=== PATIENT | female | born 1975 | race Hispanic/Latino ===

== ENCOUNTER 2022-07-10 08:08 | Observation (INO) | payer SELFPAY ==
[2022-07-10 09:03] LABS: #Eosinphils 0.1 10x3/uL (0.0-0.5); #Monocytes 0.4 10x3/uL (0.0-1.1); %Basophils 0.3 % (0.0-2.0); %Eosinophils 1.7 % (0.0-6.0); %Lymphocytes 29.5 % (18.0-47.0); %Monocytes 6.2 % (0.0-10.0); %Neutrophils 62.1 % (40.0-75.0); Hemoglobin 12.1 g/dL (12.0-15.5); Mean Corpuscular HGB CONC 32.5 g/dL (32.0-36.0); Mean Corpuscular Hemoglobin 26.5 pg (27.0-33.0); Mean Corpuscular Volume 81.6 fl (81.6-98.3); Mean Platelet Volume 9.2 fl (7.4-10.4); Platelet Count 395 10x3/uL (150-450); RBC Distribution Width 15.4 % (11.5-14.5); Red Blood Cell (RBC) Count 4.56 10x6/uL (3.90-5.03); White Blood Cell (WBC) Count 6.4 10x3/uL (3.5-10.5)
[2022-07-10 09:21] LABS: ALT (SGPT) 30 U/L (8-55); AST (SGOT) 23 U/L (5-34); Albumin 3.9 g/dL (3.5-5.0); Alkaline Phosphatase 78 U/L (40-110); Anion Gap 12 mmol/L (10-20); BUN (Urea Nitrogen) 14 mg/dL (7.0-18.7); Bilirubin, Total 1.1 mg/dL (0.2-1.2); Calc. Creatinine Clearance 0 mL/min (70-130); Calcium 8.6 mg/dL (7.8-10.44); Carbon Dioxide 24 mmol/L (22-29); Chloride 106 mmol/L (98-107); Estimated GFR 110; Globulin 2.8 g/dL (2.4-3.5); Glucose 94 mg/dL (70-105); Lipase 14 U/L (8-78); Potassium 4.1 mmol/L (3.5-5.1); Protein, Total 6.7 g/dL (6.0-8.3); Sodium 138 mmol/L (136-145)
[2022-07-10] MEDS ORDERED: Ondansetron PF 4 MG/2 ML Vial ONE ×2 (10:05→15:11)
[2022-07-10] MEDS ORDERED: Morphine 4 MG/ML VIAL ONE (10:05)
[2022-07-10] MEDS ORDERED: Famotidine/PF 20 mg/2ml Vial ONE (10:20)
[2022-07-10 10:29] LABS: Bilirubin Neg (Negative); Blood, Urine Negative (Negative); Clarity Slightly Cloudy (Clear); Glucose, Urine (Dipstick) Normal (Negative); Ketone, Urine Negative (Negative); Leukocyte 25 (Negative); Nitrite Negative (Negative); Protein, Urine (Dipstick) Negative (Neg-Trace); Urobilinogen Normal mg/dL (Less than 2); pH, Urine 6.5 (5.0-9.0)
[2022-07-10 10:31] LABS: Pregnancy Test - Urine (BHCG) Negative (Negative); Pregu Control Background? CLEAR/WHITE (CLR/WHITE); Pregu Control Bar Appear? YES (CONTROL BAR)
[2022-07-10 10:40] LABS: Transitional Epithelial 0-3 HPF (None Seen)
[2022-07-10 10:41] LABS: RBC/HPF 0-3 HPF (0-3); WBC/HPF 0-3 HPF (0-3)
[2022-07-10 10:43] LABS: Bacteria/HPF 1+ HPF (None Seen)
[2022-07-10] MEDS ORDERED: Iopamidol 300 61% 100 ML VIAL FS ONE (11:46)
[2022-07-10] MEDS ORDERED: Bupivacaine/Epinephrine 0.25% 30 ML VIAL ONE (14:41)
[2022-07-10] MEDS ORDERED: Iopamidol 15 ML ONE (14:54)
[2022-07-10] MEDS ORDERED: Ketorolac Tromethamine 30 MG/ML VIAL ONE (15:11)
[2022-07-10] MEDS ORDERED: Glycopyrrolate 0.2 MG/ML 5 ML SYRINGE ONE (15:11)
[2022-07-10] MEDS ORDERED: Lidocaine 1% PF 5 ML VIAL ONE (15:11)
[2022-07-10] MEDS ORDERED: PHENYLEPHRINE-NS 100 MCG/ML 10 ML SYRINGE ONE (15:11)
[2022-07-10] MEDS ORDERED: PROPOFOL 20 ML ONE (15:11)
[2022-07-10] MEDS ORDERED: Rocuronium Bromide 10 MG/ML (10ML VIAL) ONE (15:11)
[2022-07-10] MEDS ORDERED: Dexamethasone 4 mg/ml Vial ONE (15:11)
[2022-07-10] MEDS ORDERED: Midazolam HCl 2 mg/2 ml Vial ONE (15:12)
[2022-07-10] MEDS ORDERED: Fentanyl 100 MCG/2 ML VIAL ONE ×3 (15:12→18:23)
[2022-07-10] MEDS ORDERED: CEFAZOLIN 1 GM VIAL ONE (15:32)
[2022-07-10] MEDS ORDERED: Sodium Chloride 0.9% 20 ML ONE (15:32)
[2022-07-10] MEDS ORDERED: Morphine 2 MG/ML VIAL SLOW IVP PRN (17:48)
[2022-07-10] MEDS ORDERED: Dextrose 5% in Water 1,000 ML IV PRN (17:48)
[2022-07-10] MEDS ORDERED: Acetaminophen 325 MG TAB PO PRN (17:48)
[2022-07-10] MEDS ORDERED: Ondansetron PF 4 MG/2 ML Vial IVP PRN (17:48)
[2022-07-10] MEDS ORDERED: Promethazine HCl 25 MG/ML VIAL IM PRN (17:48)
[2022-07-10] MEDS ORDERED: Dextrose 50% Abboject 50 ML SYRINGE SLOW IVP PRN (17:48)
[2022-07-10] MEDS ORDERED: Sodium Chloride 0.9% 1,000 ML IV SCH (18:00)
[2022-07-10] MEDS ORDERED: Lidocaine 2% 6 ML SYR TOP PRN (21:37)
[2022-07-10] MEDS ORDERED: FLU VACC QS2022-23(6MO UP)/PF 60 MCG/0.5 ML SYRINGE IM ONE (21:45)
[2022-07-10] MEDS: Famotidine 20 MG TAB PO SCH (22:40)
[2022-07-10] MEDS: HYDROcodone/Acetaminophen 10/325 mg Tablet PO PRN (22:41)
[2022-07-10] MEDS: Famotidine/PF 20 mg/2ml Vial SLOW IVP SCH (22:41)
[2022-07-11] MEDS: HYDROcodone/Acetaminophen 10/325 mg Tablet PO PRN (05:00)
[2022-07-11 07:36] VITALS: BP 119/67; TEMP 98
[2022-07-11] MEDS: Famotidine 20 MG TAB PO SCH (08:14)
[2022-07-11] MEDS: Famotidine/PF 20 mg/2ml Vial SLOW IVP SCH (08:21)
== END 2022-07-11 10:00 | disposition home or self-care (01) ==
LOC: CSHERS 08:08 → CSHPED 18:48
PROVIDERS: ADMIT Surgery; ATTEND Surgery
PROC: 0FT44ZZ Resection of Gallbladder, Percutaneous Endoscopic Approach (ICD-10-PCS; principal; 2022-07-10)
DX: K80.10 Calculus of gallbladder with chronic cholecystitis without obstruction (principal); Z79.899 Other long term (current) drug therapy; E66.9 Obesity, unspecified
CPT/HCPCS: 36415; 74177; 76705; 80053; 81003; 81015; 81025; 83690; 85025; 88304; 94760; 96361; 96374; 96375; C1889; G0378; J0690; J1100; J1885; J2250; J2270; J2405; J2704; J3010; Q9967; S0028